=== PATIENT | female | born 1985 | race African-American/Black ===

== ENCOUNTER 2017-10-03 09:23 | Emergency (ER) | payer BC ==
[~2017-10-03] VITALS: Ht 172.7 cm; Wt 65.8 kg
[~2017-10-03 09:23] MED LIST: GENTAK5 ML RIGHT EYE
[2017-10-03] MEDS ORDERED: ALBUTEROL SULF8.5 GM INH (09:40)
--- NOTE | 2017-10-03 09:51 | Emergency Room Report ---
History of Present Illness General Chief Complaint: Flu Like Symptoms Source: Patient Present Illness HPI Patient presents with complaints of cough and sore throat since Wednesday patient developed chills bodyache Denies any vomiting or diarrhea denies any rash Patient has history of asthma however was having more right-sided pain in the lower thoracic region with increased cough Denies any dysuria or frequency denies any recent travel Allergies: Coded Allergies: No Known Allergies (Unverified , 02/05/14) Patient History Past Medical History: see triage record Pertinent Family History: none Last Menstrual Period: year--iud Now: No Reviewed Nursing Documentation: PMH: Agreed, PSxH: Agreed Nursing Documentation-PMH Past Medical History: No History, Except For Hx Asthma: Yes Review of Systems All Other Systems: negative except mentioned in HPI Physical Exam Vital Signs Date Time Temp Pulse Resp B/P (MAP) Pulse Ox O2 Delivery O2 Flow Rate FiO2 10/03/17 09:35 98.4 127 22 114/77 98 Room Air Sp02 EP Interpretation: reviewed, normal General Appearance: no apparent distress Head: normocephalic, atraumatic Eyes: bilateral eye PERRL, bilateral eye EOMI ENT: hearing grossly normal, normal pharynx, TMs + canals normal, uvula midline Neck: full range of motion, supple, no meningismus, no bony tend Respiratory: no rhonchi, no respiratory distress, no retraction, no accessory muscle use, wheezing - fine wheezing in upper lobes Cardiovascular #1: normal peripheral pulses, regular rate, rhythm, no edema, no gallop, no JVD, no murmur Gastrointestinal: normal bowel sounds, non tender, soft, no mass, no organomegaly, non-distended, no guarding, no hernia, no pulsatile mass, no rebound Genitourinary: no CVA tenderness Musculoskeletal: normal inspection Neurologic: oriented x3, responsive, utility aide III-XII nml as tested, motor strength/ tone normal, sensory intact Psychiatric: mood/affect normal Skin: normal color, no rash, warm/dry, palpation normal Lymphatic: normal inspection, no adenopathy Medical Decision Making Diagnostic Impression: Primary Impression: Influenza-like symptoms ER Course Patient has done better throughout her stay imaging study did not reveal obvious pathology The patient continues to remain hemodynamically stable as well and at this time stable for discharge and close followup Labs Test 10/03/17 09:50 Urine HCG, Qualitative Negative Chest X-Ray Diagnostic Results Chest X-Ray Diagnostic Results : Chest X-Ray Ordered: Yes # of Views/Limited/Complete: 1 View Indication: Shortness of Breath EP Interpretation: Yes Interpretation: no consolidation, no effusion, no pneumothorax Impression: No acute disease Electronically Signed by: Alvaro Miguel DO Last Vital Signs Date Time Temp Pulse Resp B/P (MAP) Pulse Ox O2 Delivery O2 Flow Rate FiO2 10/03/17 09:35 98.4 127 22 114/77 98 Room Air Status: improved Disposition: HOME, SELF-CARE Condition: Improved Scripts Prednisone* (PREDNISONE*) 20 Mg Tablet 20 MG ORAL BID, #8 TAB Prov: ALVARO MIGUEL D.O. 10/03/17 Oseltamivir Phosphate (Tamiflu) 75 Mg Capsule 75 MG ORAL TWICE A DAY for 5 Days, CAP Prov: ALVARO MIGUEL D.O. 10/03/17 Additional Instructions: Patient is provided with the discharge instructions notified to follow up with primary doctor in the next 2-3 days otherwise return to the er with any worsening symptoms. Please note that this report is being documented using vozero technology. This can lead to erroneous entry secondary to incorrect interpretation by the dictating instrument. ALVARO MIGUEL D.O. Oct 03, 2017 09:51
[2017-10-03 09:54] VITALS: BP 138/74
[2017-10-03] MEDS ORDERED: Levalbuterol Inh UD 1.25mg/0.5ml HHN ONE (10:00)
--- NOTE | 2017-10-03 10:31 | Diagnostic Imaging Report ---
Indication: Dyspnea Technique: XRAY Chest 1v Comparison: None Findings: Heart size and mediastinal contours are within normal limits. There is no focal consolidation, pneumothorax or pleural effusion. Osseous structures demonstrate no acute abnormality. Impression: No radiographic evidence of acute cardiopulmonary disease.
[2017-10-03] MEDS ORDERED: PREDNISONE20 MG ORAL (10:37)
[2017-10-03] MEDS ORDERED: TAMIFLU75 MG ORAL (10:37)
[2017-10-03 10:50] VITALS: BP 138/74
== END 2017-10-03 10:50 | disposition home or self-care (01) ==
LOC: EMR 09:55
DX: J11.1 Influenza due to unidentified influenza virus with other respiratory manifestations (principal); J45.909 Unspecified asthma, uncomplicated
CPT/HCPCS: 71010; 81025; 94640; 94664; 99284; J7512; J7644

== ENCOUNTER 2018-09-07 13:39 | Emergency (ER) | payer BC, OTHER ==
[~2018-09-07] VITALS: Ht 172.7 cm; Wt 78.9 kg
[~2018-09-07 13:39] MED LIST changes: +ALBUTEROL SULF8.5 GM INH; +PREDNISONE20 MG ORAL; +TAMIFLU75 MG ORAL
[2018-09-07] MEDS ORDERED: Ketorolac 30mg Inj IV ONE (14:15)
--- NOTE | 2018-09-07 14:18 | Emergency Room Report ---
History of Present Illness General Chief Complaint: Abdominal Pain Source: Patient Present Illness HPI Patient presents emergency department today complaining of acute onset of right lower quadrant pelvic pain. Patient states that she's had pelvic pain in the past when she had an IUD. She states her IUD has since been removed about 2 months ago. She developed acute onset of right lower quadrant and pelvic pain this afternoon when she lifted something at work. She states the pain radiated into her groin and into the back. She denies any dysuria or urinary frequency. Denies any fever chest pain shortness of breath. Symptoms noted to be moderate to severe. No other modifying factors. No other associated signs and symptoms. No other complaints were noted. Allergies: Coded Allergies: No Known Allergies (Unverified , 02/05/14) Patient History Past Medical History: asthma Past Surgical History: none Pertinent Family History: none Social History: Denies: smoking, alcohol use, drug use Reviewed Nursing Documentation: PMH: Agreed; PSxH: Agreed Nursing Documentation-PMH Past Medical History: No History, Except For Hx Asthma: Yes Review of Systems All Other Systems: negative except mentioned in HPI Physical Exam Vital Signs Date Time Temp Pulse Resp B/P (MAP) Pulse Ox O2 Delivery O2 Flow Rate FiO2 09/07/18 13:47 98.1 85 17 151/78 98 Room Air Sp02 EP Interpretation: reviewed, normal General Appearance: normal inspection, well appearing, no apparent distress, alert Head: atraumatic Eyes: bilateral eye normal inspection ENT: normal ENT inspection, hearing grossly normal, normal voice Neck: normal inspection, full range of motion, supple, no bony tend Respiratory: normal inspection, lungs clear, normal breath sounds, no respiratory distress, no retraction, no wheezing Cardiovascular #1: regular rate, rhythm, no edema Gastrointestinal: normal inspection, normal bowel sounds, soft, no guarding, no hernia, other - Tender right lower quadrant and suprapubic Genitourinary: no CVA tenderness Musculoskeletal: normal inspection, back normal, normal range of motion Neurologic: normal inspection, alert, responsive, speech normal Psychiatric: normal inspection, judgement/insight normal, mood/affect normal Skin: normal inspection, normal color, no rash Medical Decision Making Diagnostic Impression: Primary Impression: Pelvic pain ER Course Patient presents emergency department today complaining of pelvic pain. Differential diagnoses include acute ovarian torsion, ectopic , appendicitis just to name a few.Given the severity of the patient's presentation I felt this is a highly complex patient. This patient required extensive workup. Patient had laboratory workup obtained which was negative. Pelvic ultrasound obtained was also negative. Patient was reexamined multiple times. Patient is currently feeling much better. Pelvic ultrasound was negative. I did offer to perform a CT scan because of patient's right lower quadrant abdominal pain. Patient's family however declined a CT scan. Patient' s exam is fairly benign at this time. Given the patient's laboratory workup was negative and patient's symptoms are not consistent with appendicitis at felt that it was reasonable discharge patient with close monitoring. Recommend returning to ER for any worsening symptoms and as needed. Labs Test 09/07/18 14:26 White Blood Count 5.5 K/UL (4.8-10.8) Red Blood Count 3.98 M/UL (4.20-5.40) Hemoglobin 11.7 G/DL (12.0-16.0) Hematocrit 36.3 % (37.0-47.0) Mean Corpuscular Volume 91 FL (80-99) Mean Corpuscular Hemoglobin 29.3 PG (27.0-31.0) Mean Corpuscular Hemoglobin Concent 32.1 G/DL (32.0-36.0) Red Cell Distribution Width 11.6 % (11.6-14.8) Platelet Count 251 K/UL (150-450) Mean Platelet Volume 6.1 FL (6.5-10.1) Neutrophils (%) (Auto) 46.5 % (45.0-75.0) Lymphocytes (%) (Auto) 42.1 % (20.0-45.0) Monocytes (%) (Auto) 10.1 % (1.0-10.0) Eosinophils (%) (Auto) 0.4 % (0.0-3.0) Basophils (%) (Auto) 0.9 % (0.0-2.0) Urine Color Pale yellow Urine Appearance Slightly cloudy Urine pH 7 (4.5-8.0) Urine Specific [place] 1.010 (1.005-1.035) Urine Protein Negative (NEGATIVE) Urine Glucose (UA) Negative (NEGATIVE) Urine Ketones Negative (NEGATIVE) Urine Blood 4+ (NEGATIVE) Urine Nitrite Negative (NEGATIVE) Urine Bilirubin Negative (NEGATIVE) Urine Urobilinogen Normal MG/DL (0.0-1.0) Urine Leukocyte Esterase 3+ (NEGATIVE) Urine RBC 15-20 /HPF (0 - 2) Urine WBC 10-15 /HPF (0 - 2) Urine Squamous Epithelial Cells Many /LPF (NONE/OCC) Urine Bacteria Moderate /HPF (NONE) Urine HCG, Qualitative Negative (NEGATIVE) Sodium Level 139 MMOL/L (136-145) Potassium Level 3.7 MMOL/L (3.5-5.1) Chloride Level 104 MMOL/L (98-107) Carbon Dioxide Level 28 MMOL/L (21-32) Anion Gap 7 mmol/L (5-15) Blood Urea Nitrogen 9 mg/dL (7-18) Creatinine 0.9 MG/DL (0.55-1.30) Estimat Glomerular Filtration Rate > 60 mL/min (>60) Glucose Level 81 MG/DL (74-106) Calcium Level 8.7 MG/DL (8.5-10.1) Total Bilirubin 0.4 MG/DL (0.2-1.0) Aspartate Amino Transf (AST/SGOT) 20 U/L (15-37) Alanine Aminotransferase (ALT/SGPT) 18 U/L (12-78) Alkaline Phosphatase 57 U/L (46-116) Total Protein 8.6 G/DL (6.4-8.2) Albumin 3.8 G/DL (3.4-5.0) Globulin 4.8 g/dL Albumin/Globulin Ratio 0.8 (1.0-2.7) Lipase 92 U/L (73-393) Last Vital Signs Date Time Temp Pulse Resp B/P (MAP) Pulse Ox O2 Delivery O2 Flow Rate FiO2 09/07/18 13:47 98.1 85 17 151/78 98 Room Air Status: improved Disposition: HOME, SELF-CARE Condition: Stable Scripts Ibuprofen* (MOTRIN*) 600 Mg Tablet 600 MG ORAL Q8H PRN for For Pain, #20 TAB 0 Refills Prov: Steven Newsome MD 09/07/18 Steven Newsome MD Sep 07, 2018 14:18
[2018-09-07 14:30] VITALS: BP 120/80
[2018-09-07 14:44] LABS: APPEARANCE,URINE SLIGHTLY CLOUDY; BILIRUBIN, URINE NEGATIVE (NEGATIVE); COLOR,URINE PALE YELLOW; GLUCOSE, URINE (UA) NEGATIVE (NEGATIVE); KETONES,URINE NEGATIVE (NEGATIVE); LEUKOCYTE ESTERASE ,URINE 3+ (NEGATIVE); NITRITE,URINE NEGATIVE (NEGATIVE); PH,URINE 7 (4.5-8.0); PROTEIN,URINE NEGATIVE (NEGATIVE); UROBILINOGEN,URINE NORMAL MG/DL (0.0-1.0)
[2018-09-07 14:52] LABS: BASOPHILS % (AUTO) 0.9 % (0.0-2.0); EOSINOPHILS % (AUTO) 0.4 % (0.0-3.0); HEMATOCRIT 36.3 % (37.0-47.0); HEMOGLOBIN 11.7 G/DL (12.0-16.0); LYMPHOCYTES % (AUTO) 42.1 % (20.0-45.0); MEAN CORPUSCULAR VOLUME 91 FL (80-99); MONOCYTES % (AUTO) 10.1 % (1.0-10.0); NEUTROPHILS % (AUTO) 46.5 % (45.0-75.0); PLATELET COUNT 251 K/UL (150-450); RED BLOOD COUNT 3.98 M/UL (4.20-5.40); RED CELL DISTRIBUTION WIDTH 11.6 % (11.6-14.8); WHITE BLOOD COUNT 5.5 K/UL (4.8-10.8)
[2018-09-07 15:01] LABS: ANION GAP 7 mmol/L (5-15); BLOOD UREA NITROGEN 9 mg/dL (7-18); CALCIUM 8.7 MG/DL (8.5-10.1); CARBON DIOXIDE 28 MMOL/L (21-32); CHLORIDE 104 MMOL/L (98-107); CREATININE 0.9 MG/DL (0.55-1.30); POTASSIUM 3.7 MMOL/L (3.5-5.1); SODIUM 139 MMOL/L (136-145)
[2018-09-07 15:07] LABS: ALANINE AMINOTRANSFERASE 18 U/L (12-78); ALBUMIN 3.8 G/DL (3.4-5.0); ALBUMIN/GLOBULIN RATIO 0.8 (1.0-2.7); ALKALINE PHOSPHATASE 57 U/L (46-116); ASPARTATE AMINO TRANSFERASE 20 U/L (15-37); BILIRUBIN,TOTAL 0.4 MG/DL (0.2-1.0)
[2018-09-07 16:00] VITALS: BP 124/81
[2018-09-07] MEDS ORDERED: IBUPROFEN600 MG ORAL (16:06)
[2018-09-07 16:15] VITALS: BP 124/81
--- NOTE | 2018-09-07 16:55 | Diagnostic Imaging Report ---
Indication: Right-sided pelvic pain, negative test, recent intrauterine device removal Technique: Transabdominal and transvaginal images Comparison: none Findings: Uterus measures 7.4 cm length by 3.9 cm AP. Endometrium measures 3 mm thick. Echogenic shadowing focus is seen centrally within the endometrium, probably a small area of calcification. No myometrial abnormality. Small cervical nabothian cysts are incidentally noted. Some fluid is seen in the endocervical canal. No free cul-de-sac fluid. The right ovary measures 2.7 cm in length. The left ovary measures 2.1 cm in length. No adnexal mass demonstrated. Prominent veins are seen in the right adnexal region. Impression: Prominent right adnexal veins. This could indicate ovarian venous insufficiency which can result in pelvic congestion syndrome. Correlate with clinical findings Small amount of fluid in the endocervical canal, nonspecific Negative for adnexal mass Shadowing echogenic focus in the endometrium. Probably a calcification related to prior intrauterine device. Findings discussed by phone with Dr. Newsome at the time of interpretation
== END 2018-09-07 16:15 | disposition home or self-care (01) ==
LOC: EMR 14:30
DX: R10.2 Pelvic and perineal pain (principal); J45.909 Unspecified asthma, uncomplicated
CPT/HCPCS: 36415; 76830; 76856; 80053; 81003; 81025; 83690; 85025; 87086; 96374; 99283; J1885